=== PATIENT | male | born 1950 | race Caucasian/White ===

== ENCOUNTER 2021-12-28 10:03 | Inpatient (IN) | payer OTHER ==
[~2021-12-28] VITALS: Ht 152.4 cm; Wt 63.5 kg
[2021-12-28] MEDS ORDERED: DEPAKOTE ER250 MG PO (10:15)
[2021-12-28] MEDS ORDERED: ABILIFY10 MG PO (10:15)
[2021-12-28] MEDS ORDERED: PANADOL EXTRA500 MG PO (10:15)
--- NOTE | 2021-12-28 10:19 | NUR ---
SE RECIBE PACIENTE EN AMBULANCIA ALERTA Y ORIENTADO X3 EN COMPANIA DE FAMILIAR QUIENES INDICAN QUE PACIENTE VIENE TRANSFERIDO DEL FAIR PLAY DE HUMACAO Y FUE ACEPTADO POR EL DR MALONE POR UN ABCESO EN LA MANO IZQUIERDA. PACIENTE PREVIAMENTE CANALIZADO EN RA CON ANGIO #20 DEL [facility]. SE MONITOREAN S/V Y SE UBICA PACIENTE.
--- NOTE | 2021-12-28 12:29 | NUR ---
PTE ALERTA,ESTABLE Y ORIENTO.SE EDUCA SOBRE EL TRATAMIENTO QUE RECIBIRA EN EL [facility] REFIERE ENTENDER.
== END 2022-01-05 18:10 | disposition home or self-care (01) | DRG 605 ==
LOC: ER 10:03 → MEDI 16:44
PROVIDERS: ADMIT Internal Medicine; ATTEND Internal Medicine
PROC: 0HDGXZZ Extraction of Left Hand Skin, External Approach (ICD-10-PCS; principal; 2021-12-29)
PROC: BP2 Imaging, Non-Axial Upper Bones, Computerized Tomography (CT Scan) (ICD-10-PCS; 2021-12-30)
PROC: 0HDGXZZ Extraction of Left Hand Skin, External Approach (ICD-10-PCS; 2022-01-04)
DX: S61.452A Open bite of left hand, initial encounter (principal); L03.114 Cellulitis of left upper limb; L02.512 Cutaneous abscess of left hand; F20.9 Schizophrenia, unspecified; B96.89 Other specified bacterial agents as the cause of diseases classified elsewhere; Z20.822 Contact with and (suspected) exposure to COVID-19; F32.A Depression, unspecified